=== PATIENT | female | born 1985 | race Two or more races ===

== ENCOUNTER → 2019-05-10 | Outpatient (CLI) | payer OTHER ==
[~2019-05-10] MED LIST: FLUO20 PO; HYDACE7.5 PO; OTC SLEEP MED; OXYACE5T PO; PANT40 PO; PROM25 PO
[2019-05-11 15:07] LABS: HPV 16 Negative (Negative); HPV 18 Negative (Negative); HPV OTHER HR TYPES Positive (Negative)
== END | disposition home or self-care (01) ==
LOC: LAB 09:46 → LAB SHORT 09:46
PROVIDERS: Obstetrics & Gynecology
DX: Z12.4 Encounter for screening for malignant neoplasm of cervix (principal)
CPT/HCPCS: 87624; 87625; G0123

== ENCOUNTER 2021-04-17 08:27 | Emergency (ER) | payer OTHER ==
[~2021-04-17] VITALS: Ht 167.6 cm; Wt 146.5 kg
[2021-04-17] MEDS ORDERED: MELO7.5 PO (08:40)
[2021-04-17] MEDS ORDERED: ESTARYLLA 0.251 EACH PO (08:40)
[2021-04-17] MEDS ORDERED: ERGO50000 PO (08:40)
[2021-04-17] MEDS ORDERED: METF500 PO (08:40)
[2021-04-17] MEDS ORDERED: TRAM50 PO (08:40)
[2021-04-17] MEDS ORDERED: Amphetamine Sal20 MG PO (08:41)
[2021-04-17 09:02] LABS: BASOPHILS ABSOLUTE AUTO 0.06 K/mm3 (0.00-0.23); BASOPHILS PERCENT AUTO 1 % (0-2); EOSINOPHILS ABSOLUTE AUTO 0.12 K/mm3 (0.00-0.68); EOSINOPHILS PERCENT AUTO 1 % (0-6); Hemoglobin 8.9 g/dL (11.5-16.0); IMMATURE GRAN ABSOLUTE AUTO 0.03 K/mm3 (0.00-0.10); IMMATURE GRAN PERCENT AUTO 0 % (0-1); LYMPHOCYTES PERCENT AUTO 22 % (21-46); MONOCYTES ABSOLUTE AUTO 0.83 K/mm3 (0.16-1.47); MONOCYTES PERCENT AUTO 8 % (4-13); Mean Corpuscular HGB 21.9 pg (26.0-34.0); Mean Corpuscular HGB Conc 27.8 g/dL (31.5-36.5); Mean Corpuscular Volume 79 fL (80-100); Mean Platelet Volume 9.5 fL (9.1-12.4); NEUTROPHILS ABSOLUTE AUTO 7.11 K/mm3 (1.96-9.15); NEUTROPHILS PERCENT AUTO 68 % (41-73); Platelet Count 682 K/mm3 (150-400); RDW Coefficient Variation 19.6 % (11.7-14.2); RDW Standard Deviation 55.2 fL (35.1-46.3); Red Blood Cell Count 4.07 M/mm3 (3.80-5.20); White Blood Cell Count 10.45 K/mm3 (4.00-11.30)
[2021-04-17 09:16] LABS: Alanine Aminotransfer (ALT/SGP 15 U/L (12-78); Albumin, Blood 3.8 g/dL (3.4-5.0); Albumin/Globulin Ratio 0.7 (0.8-1.8); Alk Phos 61 U/L (50-136); Anion Gap 9 mmol/L (6-16); Aspartate Aminotrans (AST/SGOT 9 U/L (12-37); Bilirubin, Total 0.2 mg/dL (0.1-1.0); Blood Urea Nitrogen 11 mg/dL (8-24); Bun/Creatinine Ratio 14.1 (12.0-20.0); CO2, Blood 22 mmol/L (21-32); Calcium, Blood 9.2 mg/dL (8.5-10.1); Chloride, Blood 109 mmol/L (98-108); Creatinine, Blood 0.78 mg/dL (0.40-1.00); Globulin, Blood 5.3 g/dL (2.2-4.0); Glomerular Filtration Rate >60 (60-); Glucose, Blood 129 mg/dL (70-99); Potassium, Blood 3.5 mmol/L (3.5-5.5); Sodium, Blood 140 mmol/L (136-145); Total Protein, Blood 9.1 g/dL (6.4-8.2)
[2021-04-17] MEDS ORDERED: NEBI5 PO (11:33)
== END 2021-04-17 11:54 | disposition home or self-care (01) ==
LOC: ER 08:27
PROVIDERS: Emergency Medicine
DX: T78.3XXA Angioneurotic edema, initial encounter (principal); T46.4X5A Adverse effect of angiotensin-converting-enzyme inhibitors, initial encounter; I10 Essential (primary) hypertension; Z88.8 Allergy status to other drugs, medicaments and biological substances; Z79.899 Other long term (current) drug therapy; Z79.84 Long term (current) use of oral hypoglycemic drugs
CPT/HCPCS: 36415; 80053; 85025; 96374; 96375; 99283-25; J1200; J2930

== ENCOUNTER 2022-01-10 12:37 | Emergency (ER) | payer OTHER ==
[~2022-01-10] VITALS: Ht 167.6 cm; Wt 128.8 kg
[~2022-01-10 12:37] MED LIST changes: +Amphetamine Sal20 MG PO; +ERGO50000 PO; +ESTARYLLA 0.251 EACH PO; +MELO7.5 PO; +METF500 PO; +NEBI5 PO; +TRAM50 PO
[2022-01-10] MEDS ORDERED: VERA80 (12:49)
[2022-01-10] MEDS ORDERED: Robaxin750 MG PO (14:53)
[2022-01-10] MEDS ORDERED: IBUP800 PO (14:53)
== END 2022-01-10 15:11 | disposition home or self-care (01) ==
LOC: ER 12:37
DX: M25.512 Pain in left shoulder (principal); R07.9 Chest pain, unspecified; I10 Essential (primary) hypertension; V47.5XXA Car driver injured in collision with fixed or stationary object in traffic accident, initial encounter; Y92.411 Interstate highway as the place of occurrence of the external cause; Z79.4 Long term (current) use of insulin; Z88.8 Allergy status to other drugs, medicaments and biological substances; Z79.899 Other long term (current) drug therapy
CPT/HCPCS: 71046; 73000; A9270

== ENCOUNTER → 2022-04-10 | Outpatient (CLI) | payer OTHER ==
[~2022-04-10] MED LIST changes: +ALPRAZOLAM PO; +IBUP800 PO; +METFORMIN HCL500 M2 PO; +Robaxin750 MG PO; +VERA180ERB PO; +VERA80
[2022-04-14 08:09] LABS: COTININE Negative ng/mL (Cutoff=300)
== END | disposition home or self-care (01) ==
LOC: LAB SHORT 17:55 → LAB 17:55
PROVIDERS: Orthopaedic Surgery Adult Reconstructive Orthopaedic Surgery
DX: M16.2 Bilateral osteoarthritis resulting from hip dysplasia (principal); M21.952 Unspecified acquired deformity of left thigh

== ENCOUNTER → 2022-04-28 | Outpatient (CLI) | payer OTHER | LOC: LAB 07:32 → LAB SHORT 07:32 | DX: C54.1 Malignant neoplasm of endometrium (principal); C56.9 Malignant neoplasm of unspecified ovary | CPT/HCPCS: 88305 ==